=== PATIENT | male | born 2000 | race African-American/Black ===

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

== ENCOUNTER 2021-01-02 01:29 | Emergency (ER) | payer OTHER, SELFPAY | END 2021-01-02 02:44 | disposition home or self-care (01) | LOC: MADERS 01:29 | DX: S82.891A Other fracture of right lower leg, initial encounter for closed fracture (principal); X50.1XXA Overexertion from prolonged static or awkward postures, initial encounter | CPT/HCPCS: 29515 ==

== ENCOUNTER 2022-07-26 16:49 | Emergency (ER) | payer OTHER ==
[2022-07-26] MEDS ORDERED: Ibuprofen 600 MG TAB ONE (17:59)
[2022-07-26] MEDS ORDERED: Dexamethasone 4 MG TAB ONE (17:59)
== END 2022-07-26 19:04 | disposition home or self-care (01) ==
LOC: MADERS 16:49
DX: J06.9 Acute upper respiratory infection, unspecified (principal); Z20.822 Contact with and (suspected) exposure to COVID-19
CPT/HCPCS: 87081; 87430; 87804; 99283; J8540; U0003; U0005

== ENCOUNTER 2024-01-01 04:13 | Emergency (ER) | payer OTHER, SELFPAY ==
[2024-01-01] MEDS ORDERED: Boostrix 0.5 ML (Tdap) VIAL (>/=7 yrs of age) ONE (04:45)
[2024-01-01] MEDS ORDERED: Lidocaine 1% (PF) 30 ML VIAL ONE (05:10)
[2024-01-01] MEDS ORDERED: Bacitracin 1 PK ONE (05:30)
== END 2024-01-01 05:56 | disposition home or self-care (01) ==
LOC: MADERS 04:13
DX: S61.411A Laceration without foreign body of right hand, initial encounter (principal); Z23 Encounter for immunization; X58.XXXA Exposure to other specified factors, initial encounter
CPT/HCPCS: 12002; 90471; 90715; J2001

== ENCOUNTER 2024-04-17 02:36 | Emergency (ER) | payer SELFPAY | END 2024-04-17 03:15 | disposition home or self-care (01) | LOC: MADERS 02:36 | DX: S51.811A Laceration without foreign body of right forearm, initial encounter (principal); R03.0 Elevated blood-pressure reading, without diagnosis of hypertension; W26.9XXA Contact with unspecified sharp object(s), initial encounter | CPT/HCPCS: 12001; 99282 ==